=== PATIENT | female | born 1980 | race African-American/Black ===

== ENCOUNTER 2017-03-17 23:42 | Emergency (ER) | payer OTHER ==
[~2017-03-17] VITALS: Ht 167.6 cm; Wt 108.6 kg
[2017-03-17 23:49] VITALS: BP 149/89; PULSE 88; RESP 18; TEMP 97.5; O2SAT 100
[2017-03-18 00:10] VITALS: BP 136/72; PULSE 89; RESP 18; O2SAT 100
[2017-03-18] MEDS ORDERED: ONDANSETRON HCL 4 MG/2 ML VIAL IVP ONE (00:30)
[2017-03-18] MEDS ORDERED: SODIUM CHLORIDE 0.9% FLUSH 10 ML FLUSH IVF PRN (00:30)
[2017-03-18 00:40] VITALS: BP 136/72; PULSE 89; RESP 18; O2SAT 100
[2017-03-18] MEDS: SODIUM CHLOR 0.9% 1000 ML INJ 1,000 ML IV SCH ×2 (00:48→01:40)
--- NOTE | 2017-03-18 00:58 | PD ---
HPI Chief Complaint: PILAR Related Problem Time Seen by Provider: 00:22 Travel History International Travel<30 days: No Contact w/Intl Traveler<30days: No Traveled to known affect area: No History of Present Illness HPI The patient is a 36-year-old female, G4, P2, A1 who states she is 11 weeks who complains of bilateral lower abdominal cramping, nausea, vomiting and fatigue for 5 days. She had spotting during the first 3 weeks of but no spotting now. She denies any fever. She comes in primarily because of the nausea/vomiting and does not want to get more dehydrated. She has not had any diarrhea. She has not had an ultrasound yet. She is followed by Dr. Aviles. Her next appointment is next . She had preeclampsia in her first but has not had a problem since. PFSH Past Medical History AAA: No ADD: No ADHD: No Alzheimer's Disease: No Anemia: No Arthritis: No Asthma: No Atrial Fibrillation: No Autoimmune Disease: No Blood Disorders: No Bipolar Disorder: No Anxiety: No Depression: No Heart Rhythm Problems: No Cancer: No Cardiomyopathy: No Cardiovascular Problems: No Cerebral Palsy: No High Cholesterol: No Chemotherapy: No Chest Pain: No Congestive Heart Failure: No Cirrhosis: No COPD: No Cerebrovascular Accident: No Coronary Artery Disease: No Cystic Fibrosis: No Dementia: No Developmental Delay: No Diabetes: No Dialysis: No Diminished Hearing: No Diverticulitis: No Endocrine: No Gastrointestinal Disorders: No Genetic Disorder: No GERD: No Genitourinary: No Headaches: No Hepatitis: No Hypertension: No Immune Disorder: No Kidney Stones: No Musculoskeletal: No Neurologic: No Psychiatric: No Reproductive: Yes (PRE-ECLAMPSIA) Respiratory: No Integumentary: No Migraines: No Myocardial Infarction: No Pancreatitis: No Radiation Therapy: No Renal Failure: No Schizophrenia: No Seizures: No Sickle Cell Disease: No Thyroid Disease: No Ulcer: No ?: : 3 Para: 2 Miscarriage: 1 Past Surgical History Abdominal Surgery: Yes (1996) AICD: No Arteriovenous Shunt: No Cardiac Surgery: No Section: Yes (2002, 2006) Ear Surgery: No Endocrine Surgery: No Eye Surgery: No Genitourinary Surgery: No Gynecologic Surgery: No Insulin Pump: No Neurologic Surgery: No Oral Surgery: No Pacemaker: No Thoracic Surgery: No Other Surgery: Yes (UMBILICAL HERNIA REPAIR 1993) Family History Family Hypercholesterolemia: No Social History Alcohol Use: Yes ([facility]) Tobacco Use: No Substance Use: No Allergies-Medications (Allergen,Severity, Reaction): Coded Allergies: No Known Allergies (Verified , 03/18/17) Reported Meds & Prescriptions Reported Meds & Active Scripts Active No Active Prescriptions or Reported Medications Review of Systems Except as stated in HPI: all other systems reviewed are Neg Physical Exam Narrative GENERAL: The patient is alert, oriented 3 and moderate distress with her abdominal cramping and nausea. Her vital signs show blood pressure 149/89 initially but repeat blood pressure is 136/72. The rest the vital signs are normal. SKIN: Focused skin assessment warm/dry. HEAD: Atraumatic. Normocephalic. EYES: Pupils equal and round. No scleral icterus. No injection or drainage. ENT: No nasal bleeding or discharge. Mucous membranes pink and moist. NECK: Trachea midline. No JVD. CARDIOVASCULAR: Regular rate and rhythm. No murmur appreciated. RESPIRATORY: No accessory muscle use. Clear to auscultation. Breath sounds equal bilaterally. GASTROINTESTINAL: Abdomen soft, with minimal tenderness in the bilateral lower quadrants, nondistended. Hepatic and splenic margins not palpable. No guarding or rebound is present. MUSCULOSKELETAL: No obvious deformities. No clubbing. No cyanosis. There is 1 + bilateral lower extremity edema. NEUROLOGICAL: Awake and alert. No obvious cranial nerve deficits. Motor grossly within normal limits. Normal speech. PSYCHIATRIC: Appropriate mood and affect; insight and judgment normal. Data Data Last Documented VS Vital Signs Date Time Temp Pulse Resp B/P Pulse Ox O2 Delivery O2 Flow Rate FiO2 03/18/17 02:18 102 18 141/78 100 Room Air 03/17/17 23:49 97.5 Orders Beta Hcg (Quant/Titer) (03/18/17 00:22) Complete Blood Count With Diff (03/18/17 00:22) Basic Metabolic Panel (Bmp) (03/18/17 00:22) Us Pelvis (Ques Preg/Ectopic) (03/18/17 ) Urinalysis - C+S If Indicated (03/18/17 00:22) Sodium Chloride 0.9% Flush (Ns Flush) (03/18/17 00:30) Ondansetron Inj (Zofran Inj) (03/18/17 00:30) Sodium Chlor 0.9% 1000 Ml Inj (Ns 1000 M (03/18/17 00:30) Ondansetron Inj (Zofran Inj) (03/18/17 03:00) Labs Laboratory Tests Test 03/18/17 03/18/17 00:56 01:02 White Blood Count 8.2 TH/MM3 Red Blood Count 4.80 MIL/MM3 Hemoglobin 11.4 GM/DL Hematocrit 35.2 % Mean Corpuscular Volume 73.3 FL Mean Corpuscular Hemoglobin 23.8 PG Mean Corpuscular Hemoglobin 32.5 % Concent Red Cell Distribution Width 16.0 % Platelet Count 294 TH/MM3 Mean Platelet Volume 7.8 FL Neutrophils (%) (Auto) 65.1 % Lymphocytes (%) (Auto) 28.4 % Monocytes (%) (Auto) 4.6 % Eosinophils (%) (Auto) 1.5 % Basophils (%) (Auto) 0.4 % Neutrophils # (Auto) 5.4 TH/MM3 Lymphocytes # (Auto) 2.3 TH/MM3 Monocytes # (Auto) 0.4 TH/MM3 Eosinophils # (Auto) 0.1 TH/MM3 Basophils # (Auto) 0.0 TH/MM3 CBC Comment DIFF FINAL Differential Comment Sodium Level 138 MEQ/L Potassium Level 3.6 MEQ/L Chloride Level 104 MEQ/L Carbon Dioxide Level 23.2 MEQ/L Anion Gap 11 MEQ/L Blood Urea Nitrogen 6 MG/DL Creatinine 0.57 MG/DL Estimat Glomerular Filtration 146 ML/MIN Rate Random Glucose 133 MG/DL Calcium Level 8.7 MG/DL Human Chorionic Gonadotropin, [address] MIU/ML Quant Urine Color YELLOW Urine Turbidity CLEAR Urine pH 6.0 Urine Specific [place] 1.020 Urine Protein NEG mg/dL Urine Glucose (UA) NEG mg/dL Urine Ketones NEG mg/dL Urine Occult Blood NEG Urine Nitrite NEG Urine Bilirubin NEG Urine Leukocyte Esterase NEG Urine RBC 0-3 /hpf Urine WBC 3-5 /hpf Urine Squamous Epithelial 0-5 /hpf Cells Urine Bacteria OCC /hpf Microscopic Urinalysis Comment CULT NOT INDICATED MDM Medical Decision Making Medical Screen Exam Complete: Yes Emergency Medical Condition: Yes Medical Record Reviewed: Yes Interpretation(s) The ultrasound could not be done because the uterus was over 12.6 weeks. The beta-hCG is 98,883. The CBC is normal except for hemoglobin of 11.4. The urinalysis shows 3-5 white cells but is otherwise unremarkable and culture is not indicated. Differential Diagnosis Gastroenteritis, hyperemesis gravidarum, ligament pain, abruptio placenta, threatened AB Narrative Course The patient appears to have hyperemesis gravidarum with ligament pain. Plan: The patient be given Zofran and told to increase clear liquids to avoid dehydration. She will follow up with Dr. Galindo. Physician Communication Physician Communication The patient was actually discharged at 022 but because of computer delay with computers going down this appears later on the computer. Diagnosis Primary Impression: Hyperemesis gravidarum Additional Impression: Pain of round ligament Additional Instructions: As we discussed, follow-up with Dr. Galindo. Avoid dehydration, drink as much clear liquids as possible and take the Zofran regularly, every 4-6 hours to prevent nausea/vomiting. Scripts Ondansetron Odt (Zofran Odt)4 Mg Tab4 Mg SL Q6HR PRN (Nausea/Vomiting) #30 TAB Ref 0 Prov:Fahad Fraire MD 03/18/17 Disposition: DISCHARGE HOME Condition: Stable Fahad Fraire MD March 18, 2017 00:58
[2017-03-18 01:05] LABS: BLOOD, URINE NEG (NEG); GLUCOSE,URINE NEG (NEG); KETONE, URINE NEG (NEG); NITRITE,URINE NEG (NEG)
[2017-03-18 01:06] LABS: AUTOMATED NEUTROPHIL # 5.4 TH/MM3 (1.8-7.7); BASOPHIL % 0.4 % (0.0-2.0); EOSINOPHIL # 0.1 TH/MM3 (0-0.4); EOSINOPHIL % 1.5 % (0.0-4.0); HEMATOCRIT 35.2 % (35.0-46.0); LYMPH % 28.4 % (9.0-44.0); LYMPHOCYTE # 2.3 TH/MM3 (1.0-4.8); MEAN CELL VOLUME 73.3 FL (80.0-100.0); MEAN CORPUSCULAR HEMOGLOBIN 23.8 PG (27.0-34.0); MEAN CORPUSCULAR HGB CONC 32.5 % (32.0-36.0); MONO % 4.6 % (0.0-8.0); NEUT % 65.1 % (16.0-70.0); PLATELET COUNT 294 TH/MM3 (150-450); WHITE BLOOD COUNT 8.2 TH/MM3 (4.0-11.0)
[2017-03-18 01:09] VITALS: BP 135/66; PULSE 98; RESP 18; O2SAT 100
[2017-03-18] MEDS ORDERED: ONDANSETRON HCL 4 MG/2 ML VIAL IV PUSH ONE ×2 (02:00→03:00)
[2017-03-18 02:18] VITALS: BP 141/78; PULSE 102; RESP 18; O2SAT 100
[2017-03-18 02:31] LABS: BICARBONATE 23.2 MEQ/L (21.0-32.0); HEMO FLAGS DIFF FINAL; POTASSIUM 3.6 MEQ/L (3.5-5.1)
[2017-03-18 02:32] LABS: BACTERIA, URINE OCC /hpf; COMMENT (UR) CULT NOT INDICATED; CULTURE IF INDICATED CULT NOT INDICATED; RBC, URINE 0-3 /hpf (0-3); SQUAMOUS EPITHELIAL CELL URINE 0-5 /hpf (0-5); URINE COLOR YELLOW (YELLW/STRAW)
[2017-03-18] MEDS ORDERED: ZOFR4TAB3 SL (02:46)
== END 2017-03-18 03:08 | disposition home or self-care (01) ==
LOC: PHED 23:42
DX: O21.0 Mild hyperemesis gravidarum (principal); R10.2 Pelvic and perineal pain; Z3A.11 11 weeks gestation of pregnancy
CPT/HCPCS: 80048; 81001; 84702; 85025; 96361; 96374; 96376; 99284; J2405; J7030

== ENCOUNTER 2017-08-09 23:34 | Emergency (ER) | payer OTHER ==
[~2017-08-09 23:34] MED LIST: ZOFR4TAB3 SL
--- NOTE | 2017-08-10 00:52 | PD ---
HPI Chief Complaint ctx Travel History International Travel<30 Days: No Contact w/Intl Traveler<30Days: No Known Affected Area: No History of Present Illness HPI 36-year-old 002, IUP at 33.0 care complicated by mild preeclampsia, prior delivery x2, contractions/abdominal pain, obesity Patient presents complaining of abdominal pain. She reports she has been having [place] contractions for 2 weeks however they became "unbearable "today. She reports that she was experiencing them every 30 minutes during the evening with associated abdominal pressure when she was sitting and standing. She works as a chiropractor. She reports some swelling in her lower feet and extremities. She reports a 10 minute episode of upper abdominal pain that was "very painful" and occurred while she was driving home but resolved spontaneously. She denies any aggravating or alleviating factors to the contractions, and denies any attempted treatments. She does not drink much water during the day. She reports good movement. She denies any leaking of fluid or vaginal bleeding. She denies any painful contractions. She denies any headache, visual changes, right upper quadrant or epigastric pain at this time. Weeks Gestation: 33 Para: 2 History Past Medical History Narrative Medical obesity Obstetric History Obstetric History 002 Full-term delivery 2 Past Surgical History Narrative Surgical delivery 2 Family History Narrative Family History DM, HTN, CAD, [place] Social History Alcohol Use: No Tobacco Use: No Substance Abuse: No Allergies-Medications (Allergen,Severity, Reaction): Coded Allergies: No Known Allergies (Verified , 03/18/17) Home Meds Active Scripts Ondansetron Odt (Zofran Odt) 4 Mg Tab, 4 MG SL Q6HR Y for Nausea/Vomiting, #30 TAB 0 Refills Prov:Fahad Fraire MD 03/18/17 Review of Systems Except as stated in HPI: all other systems reviewed are Neg Physical Exam Narrative GENERAL: Well-nourished, well-developed patient. SKIN: Warm and dry. HEAD: Normocephalic and atraumatic. EYES: No scleral icterus. No injection or drainage. ENT: No nasal drainage noted. Mucous membranes pink. Airway patent. NECK: Supple, trachea midline. No JVD. CARDIOVASCULAR: Regular rate and rhythm without murmurs, gallops, or rubs. RESPIRATORY: Breath sounds equal bilaterally. No accessory muscle use. BREASTS: Deferred ABDOMEN/GI: Abdomen soft, non-tender, bowel sounds present, no rebound, no guarding Gravid GENITOURINARY: External Genitalia: intact and normal in appearance. Normal BUS. No cervical or vaginal masses noted. Physiologic discharge. Grossly normal rugae. FF then obtained and negative. SVE closed/thick/high/posterior, uterine contractions irregular FHT's: See separate NST/BPP report. heart rate baseline in the 120s with good good accelerations, no repetitive decelerations and moderate long-term variability with reactive NST EXTREMITIES: No cyanosis or edema. BACK: Nontender without obvious deformity. No CVA tenderness. NEUROLOGICAL: Awake and alert. Motor and sensory grossly within normal limits. Five out of 5 muscle strength in all muscle groups. Normal speech. Psychiatric: Grossly normal memory and affect Musculoskeletal: Grossly normal range of motion, gait, muscle strength Data Data Orders Orders Fibronectin (08/10/17 00:47) MDM Plan Assessment/plan: 1. IUP at 33.0 2. contractions: No evidence of labor with negative fibronectin and SVE that is closed and thick. Contractions resolved with by mouth hydration and patient was sleeping and resting comfortably. Strict labor precautions. 3. Mild preeclampsia: Patient asymptomatic with normal blood pressure upon evaluation, strict preeclampsia precautions 4. Prior delivery 2 5. well-being: Reassuring testing with NST/BPP that is reactive and 10/10. FHR reassuring and appropriate for gestational age. kick counts daily. 6. Obesity 7. UA: Negative 8. Follow up with primary OB in 2-3 days or sooner if needed Diagnosis Diagnosis: Primary Impression: 33 weeks gestation of Additional Impression: False labor Disposition: DISCHARGE HOME Condition: Good Patient Instructions: Labor (ED), Early Labor Signs (ED), Preeclampsia (ED), Movement (ED) Sahnnen Xiao MD Aug 10, 2017 00:52
--- NOTE | 2017-08-10 01:57 | PD ---
History of Present Illness History of Present Illness NST/BPP report Indications: IUP at 33 weeks, mild preeclampsia, prior delivery, contractions/abdominal pain, obesity NST: FHR baseline in the 120s with good accelerations and no decelerations, moderate long-term variability, reactive BPP: Bedside BPP was performed with DEXTER 18.02, greater than 30 seconds continuous breathing, numerous gross movements, and active flexion/ extension noted for a total BPP score of 8/8 Follow-up as clinically indicated Final diagnosis: IUP at 33 weeks, mild preeclampsia, prior delivery, contractions/abdominal pain, obesity, reassuring testing, false labor Shannen Xiao MD Aug 10, 2017 01:57
[2017-08-10 02:08] LABS: BLOOD, URINE TRACE (NEG); COMMENT (UR) CULT NOT INDICATED; CULTURE IF INDICATED CULT NOT INDICATED; GLUCOSE,URINE NEG (NEG); KETONE, URINE NEG (NEG); NITRITE,URINE NEG (NEG); SQUAMOUS EPITHELIAL CELL URINE 2 /hpf (0-5); URINE COLOR YELLOW (YELLW/STRAW)
== END 2017-08-10 02:30 | disposition home or self-care (01) ==
LOC: HOBED 23:34
DX: O47.03 False labor before 37 completed weeks of gestation, third trimester (principal); Z3A.33 33 weeks gestation of pregnancy
CPT/HCPCS: 59025; 81001; 82731

== ENCOUNTER 2017-08-29 18:36 | Inpatient (IN) | payer OTHER ==
[~2017-08-29] VITALS: Ht 165.1 cm; Wt 120.2 kg
[2017-08-29 20:00] VITALS: BP 135/84; PULSE 103
[2017-08-29 20:15] VITALS: BP 142/76; PULSE 103
[2017-08-29] MEDS ORDERED: LACTATED RINGER'S 1000 ML INJ 1,000 ML IV SCH (20:22)
--- NOTE | 2017-08-29 20:22 | HHI.HP ---
HPI Chief Complaint High blood pressure noted in her doctor's office Date Seen: Aug 29, 2017 Time Seen: 20:00 Travel History International Travel<30 Days: No Contact w/Intl Traveler<30Days: No Known Affected Area: No History of Present Illness HPI Patient is 36-year-old black female previous 2 at 35 -- [address] Panchal for care and was sent here by Dr. Panchal for evaluation of -induced hypertension. Her blood pressure in the office 150/100 and her blood pressures been good roll until just this within the last month she's had a several 140/80 numbers week ago she had 2+ protein done here on OB ED her blood pressures are 140/80 ,130/80 however she has 4+ protein on urine dipstick, 1-2+ edema versus scheduled for repeat with Dr. Panchal Weeks Gestation: 35 Para: 2 : 5 Miscarriage: 1 History Past Medical History Medical History: Denies Significant Hx Obstetric History Obstetric History Patient's had 2 C-sections 1st section at 34 weeks for for severe preeclampsia and second section a repeat at 38 weeks and she did not have preeclampsia with that according the patient Past Surgical History Narrative Surgical 2 C-sections Social History Alcohol Use: No Tobacco Use: No Substance Abuse: No Allergies-Medications (Allergen,Severity, Reaction): Coded Allergies: No Known Allergies (Verified , 03/18/17) Home Meds Active Scripts Ondansetron Odt (Zofran Odt) 4 Mg Tab, 4 MG SL Q6HR Y for Nausea/Vomiting, #30 TAB 0 Refills Prov:Fahad Fraire MD 03/18/17 Review of Systems General / Constitutional: No: Fever, Weight Gain, Chills, Other Eyes: No: Diploplia, Blurred Vision, Visual changes, Pain, Photophobia HENT: No: Headaches, Vertigo, Lightheadedness Cardiovascular: No: Irregular Rhythm, Chest Pain or Discomfort, Palpitations, Tachycardia, Syncope, Varicosities, Edema, Cyanosis Respiratory: No: Cough, Short of Breath, Other Gastrointestinal: No: Nausea, Vomiting, Diarrhea Genitourinary: No: Decreased Urinary Output, Oliguria Musculoskeletal: No: Limited ROM, Weakness, Cramping, Edema, Pain Skin: No Rash, No Itching, No Dryness, No Lumps, No Change in Pigmentation, No Change in Nails, No Alopecia, No Lesions Neurologic: No: Weakness, Dizziness, Syncope, Focal Abnormalities, Coordination Problem, Headache, Slurred Speech, Seizures Psychiatric: No: Depression, Suicidal Ideations, Homicidal Ideation Endocrine: No: Heat Intolerance, Cold Intolerance, Polydipsia, Polyuria, Other Physical Exam Narrative GENERAL: Well-nourished, well-developed patient.obese SKIN: Warm and dry. HEAD: Normocephalic and atraumatic. EYES: No scleral icterus. No injection or drainage. ENT: No nasal drainage noted. Mucous membranes pink. Airway patent. NECK: Supple, trachea midline. No JVD. CARDIOVASCULAR: Regular rate and rhythm without murmurs, gallops, or rubs. RESPIRATORY: Breath sounds equal bilaterally. No accessory muscle use. BREASTS: Bilateral exam showed no masses , no retractions, no nipple discharge. ABDOMEN/GI: Abdomen soft, non-tender, bowel sounds present, no rebound, no guarding Gravid to [35-] weeks size Fundal Height: [40-] Membranes: [intact ] Uterine Contractions: [none-] FHT's: Category: [1-] Baseline: [133-] Reactive: [yes-] Variability: [-mod] Decels: [-0] EXTREMITIES: No cyanosis, 2+ edema. BACK: Nontender without obvious deformity. No CVA tenderness. NEUROLOGICAL: Awake and alert. Motor and sensory grossly within normal limits. Five out of 5 muscle strength in all muscle groups. Normal speech. Caprini VTE Risk Assessment Caprini VTE Risk Assessment: No/Low Risk (score <= 1) Caprini Risk Assessment Model Point Value = 1 Point Value = 2 Point Value = 3 Point Value = 5 Age 41-60 Minor surgery BMI > 25 kg/m2 Swollen legs Varicose veins or History of unexplained or recurrent spontaneous Oral contraceptives or hormone replacement Sepsis (< 1 month) Serious lung disease, including pneumonia (< 1 month) Abnormal pulmonary function Acute myocardial infarction Congestive heart failure (< 1 month) History of inflammatory bowel disease Medical patient at bed rest Age 61-74 Arthroscopic surgery Major open surgery (> 45 min) Laparoscopic surgery (> 45 min) Malignancy Confined to bed (> 72 hours) Immobilizing plaster cast Central venous access Age >= 75 History of VTE Family history of VTE Factor V Leiden Prothrombin [id number] Lupus anticoagulant Anticardiolipin antibodies Elevated serum homocysteine Heparin-induced thrombocytopenia Other congenital or acquired thrombophilia Stroke (< 1 month) Elective arthroplasty Hip, pelvis, or leg fracture Acute spinal cord injury (< 1 month) Prophylaxis Regimen Total Risk Factor Score Risk Level Prophylaxis Regimen 0-1 Low Early ambulation 2 Moderate Order ONE of the following: *Sequential Compression Device (SCD) *Heparin 5000 units SQ BID 3-4 Higher Order ONE of the following medications: *Heparin 5000 units SQ TID *Enoxaparin/Lovenox 40 mg SQ daily (WT < 150 kg, CrCl > 30 mL/min) *Enoxaparin/Lovenox 30 mg SQ daily (WT < 150 kg, CrCl > 10-29 mL/min) *Enoxaparin/Lovenox 30 mg SQ BID (WT < 150 kg, CrCl > 30 mL/min) AND/OR *Sequential Compression Device (SCD) 5 or more Highest Order ONE of the following medications: *Heparin 5000 units SQ TID (Preferred with Epidurals) *Enoxaparin/Lovenox 40 mg SQ daily (WT < 150 kg, CrCl > 30 mL/min) *Enoxaparin/Lovenox 30 mg SQ daily (WT < 150 kg, CrCl > 10-29 mL/min) *Enoxaparin/Lovenox 30 mg SQ BID (WT < 150 kg, CrCl > 30 mL/min) AND *Sequential Compression Device (SCD) Data Data Orders Orders Cbc No Diff, Includes Plts (08/29/17 19:29) Comprehensive Metabolic Panel (08/29/17 19:29) Uric Acid (08/29/17 19:29) Labs Urine dipstick showing 4+ proteinuria [> 300} Assessment/Plan Assessment and Plan 36-year-old black female A1 at 35-36 weeks gestation PCS [2] patient of Dr. Panchal sent over for evaluation for -induced hypertension. Her blood pressures in the office 150/100 and here on OB ED is 140/80 however she also has urine dipstick showed 4+ proteinuria patient states it was 2+ proteinuria week ago, and she has 2+ edema. heart rate tracing is reactive and she is not roney. Patient states she's had some headache recently but not now and no visual changes right upper quadrant pain or other sequelae Impression pre-eclampsia 35-36 weeks- PCS times 2 for RCS Plan --admission check lab, consider betamethasone IM and delivery by C/S , will discuss with Roberto Louis II, MD Aug 29, 2017 20:22
[2017-08-29] MEDS ORDERED: SODIUM CHLORIDE 0.9% FLUSH 5 ML FLUSH IV FLUSH PRN ×2 (20:30→22:30)
[2017-08-29] MEDS ORDERED: ONDANSETRON HCL 4 MG/2 ML VIAL IV PUSH PRN (20:30)
[2017-08-29] MEDS ORDERED: NIFEdipine 10 MG CAP PO PRN ×3 (20:30→21:15)
[2017-08-29] MEDS ORDERED: CALCIUM GLUCONATE 10% 1 GM/10 ML VIAL IV PUSH PRN ×2 (20:30→22:30)
[2017-08-29] MEDS ORDERED: SODIUM CHLORIDE 0.9% FLUSH 5 ML FLUSH IV FLUSH SCH (21:00)
[2017-08-29 21:12] LABS: BACTERIA, URINE RARE /hpf; BLOOD, URINE SMALL (NEG); COMMENT (UR) CULT NOT INDICATED; CULTURE IF INDICATED CULT NOT INDICATED; GLUCOSE,URINE NEG (NEG); KETONE, URINE NEG (NEG); MUCUS URINE FEW /lpf (OCC); NITRITE,URINE NEG (NEG); PH, URINE 6.5 (5.0-8.5); SQUAMOUS EPITHELIAL CELL URINE 7 /hpf (0-5); URINE COLOR YELLOW (YELLW/STRAW)
[2017-08-29 21:20] LABS: HEMATOCRIT 30.5 % (35.0-46.0); MEAN CELL VOLUME 71.1 FL (80.0-100.0); MEAN CORPUSCULAR HEMOGLOBIN 22.8 PG (27.0-34.0); MEAN CORPUSCULAR HGB CONC 32.1 % (32.0-36.0); PLATELET COUNT 293 TH/MM3 (150-450); RED BLOOD COUNT 4.29 MIL/MM3 (4.00-5.30); RED CELL DISTRIBUTION WIDTH 18.2 % (11.6-17.2); REVIEW FLAG FINAL; WHITE BLOOD COUNT 7.3 TH/MM3 (4.0-11.0)
[2017-08-29 21:44] VITALS: BP 151/89; PULSE 108
[2017-08-29 21:45] VITALS: RESP 17
[2017-08-29 21:53] LABS: ANION GAP 9 MEQ/L (5-15); AST (GOT) 23 U/L (15-37); BLOOD UREA NITROGEN 7 MG/DL (7-18); CHLORIDE 105 MEQ/L (98-107); GLOMERULAR FILTRATION RATE 149 ML/MIN (>89); POTASSIUM 3.6 MEQ/L (3.5-5.1); SODIUM (NA) 136 MEQ/L (136-145)
[2017-08-29 21:54] LABS: URIC ACID 5.1 MG/DL (2.6-6.0)
[2017-08-29 21:57] LABS: ALKALINE PHOSPHATASE 157 U/L (45-117); ALT (GPT) 22 U/L (10-53); TOTAL BILIRUBIN ADULT 0.2 MG/DL (0.2-1.0)
[2017-08-29] MEDS ORDERED: Prenatal Vitamin PO (22:04)
[2017-08-29] MEDS ORDERED: Iron PO (22:05)
[2017-08-29] MEDS ORDERED: B12 PO (22:05)
[2017-08-29] MEDS: LACTATED RINGER'S 1000 ML INJ 1,000 ML IV SCH (22:30)
[2017-08-29 22:45] VITALS: BP 147/80; PULSE 101
[2017-08-29] MEDS: BETAMETHASONE SOD PHOS/ACETATE SUSP 30 MG/5 ML VIAL IM SCH (22:49)
[2017-08-29 23:00] VITALS: BP 138/82; PULSE 98; RESP 16
[2017-08-30] VITALS (39 sets, daily range): BP systolic 123–158; BP diastolic 54–86; PULSE 94–127; RESP 0–28; TEMP 97.5–98.4; O2SAT 96–100
--- NOTE | 2017-08-30 08:07 | PD.OB.ANTE ---
Subjective Diagnosis: (1) Hypertension complicating Diagnosis: Principal (2) 35 weeks gestation of Diagnosis: Secondary Antepartum ROS: Denies: New complaints, Loss of fluid, Vaginal bleeding, movement normal, Contractions, Other Objective Vital Signs Vital Signs Date Time Temp Pulse Resp B/P (MAP) Pulse Ox O2 Delivery O2 Flow Rate FiO2 08/30/17 07:45 94 18 137/77 (97) 08/30/17 07:42 98.2 08/30/17 06:30 98.4 14 08/30/17 06:00 101 123/65 (84) 08/30/17 05:00 104 139/71 (93) 08/30/17 04:09 101 133/66 (88) 08/30/17 04:00 12 08/30/17 04:00 0 08/30/17 03:00 111 135/54 (81) 08/30/17 02:30 14 08/30/17 01:00 107 150/77 (101) 08/30/17 00:26 111 152/86 (108) 08/30/17 00:00 98.4 17 08/29/17 23:00 16 08/29/17 23:00 98 138/82 (100) 08/29/17 22:45 101 147/80 (102) 08/29/17 21:45 17 08/29/17 21:44 108 151/89 (109) 08/29/17 20:15 103 142/76 (98) 08/29/17 20:00 103 135/84 (101) Lab & Micro Results Test 08/29/17 19:15 08/29/17 20:30 Urine Color YELLOW Urine Turbidity HAZY Urine pH 6.5 Urine Specific [place] 1.020 Urine Protein 100 mg/dL Urine Glucose (UA) NEG mg/dL Urine Ketones NEG mg/dL Urine Occult Blood SMALL Urine Nitrite NEG Urine Bilirubin NEG Urine Urobilinogen 2.0 MG/DL Urine Leukocyte Esterase SMALL Urine RBC 1 /hpf Urine WBC 3 /hpf Urine Squamous Epithelial Cells 7 /hpf Urine Bacteria RARE /hpf Urine Mucus FEW /lpf Microscopic Urinalysis Comment CULT NOT INDICATED White Blood Count 7.3 TH/MM3 Red Blood Count 4.29 MIL/MM3 Hemoglobin 9.8 GM/DL Hematocrit 30.5 % Mean Corpuscular Volume 71.1 FL Mean Corpuscular Hemoglobin 22.8 PG Mean Corpuscular Hemoglobin Concent 32.1 % Red Cell Distribution Width 18.2 % Platelet Count 293 TH/MM3 Mean Platelet Volume 8.1 FL Blood Urea Nitrogen 7 MG/DL Creatinine 0.56 MG/DL Random Glucose 118 MG/DL Total Protein 6.8 GM/DL Albumin 2.4 GM/DL Calcium Level 8.7 MG/DL Uric Acid 5.1 MG/DL Alkaline Phosphatase 157 U/L Aspartate Amino Transf (AST/SGOT) 23 U/L Alanine Aminotransferase (ALT/SGPT) 22 U/L Total Bilirubin 0.2 MG/DL Sodium Level 136 MEQ/L Potassium Level 3.6 MEQ/L Chloride Level 105 MEQ/L Carbon Dioxide Level 22.0 MEQ/L Anion Gap 9 MEQ/L Estimat Glomerular Filtration Rate 149 ML/MIN Physical Exam GENERAL: Well-nourished, well-developed patient. CARDIOVASCULAR: Regular rate and rhythm without murmurs, gallops, or rubs. RESPIRATORY: Breath sounds equal bilaterally. No accessory muscle use. ABDOMEN/GI: Abdomen soft, non-tender. Fundus: 35 GENITOURINARY: External Genitalia: intact and normal in appearance Cervix: [-] Dilatation: [-] Effacement: [-] Station: [-] Presentation: [-] Membranes: [-] Uterine Contractions: [-] FHT's: Category: [-] Baseline: [-] Reactive: [-] Variability: [-] Decels: [-] EXTREMITIES: No cyanosis or edema, non-tender, without signs of DVT, normal reflexes. Assessment and Plan Assessment and Plan 36-year-old black female A1 at 35-36 weeks gestation PCS [2] patient of Dr. Panchal sent over for evaluation for -induced hypertension. Her blood pressures in the office 150/100 and here on OB ED is 140/80 however she also has urine dipstick showed 4+ proteinuria patient states it was 2+ proteinuria week ago, and she has 2+ edema. heart rate tracing is reactive and she is not roney. Patient states she's had some headache recently but not now and no visual changes right upper quadrant pain or other sequelae Impression 35 6/7 weeks and hypertension ok to eat will complete 24 hour urine and give 2nd dose of steroids- Plan --admission check lab, normal Sulaiman Aviles MD Aug 30, 2017 08:07
[2017-08-30] MEDS: SODIUM CHLORIDE 0.9% FLUSH 5 ML FLUSH IV FLUSH SCH ×2 (08:12→21:00)
[2017-08-30] MEDS: LACTATED RINGER'S 1000 ML INJ 1,000 ML IV SCH ×3 (11:17→22:34)
[2017-08-30] MEDS ORDERED: MAGNESIUM SULFATE 40 GM PREMIX 1,000 ML IV SCH (12:59)
[2017-08-30] MEDS ORDERED: BETAMETHASONE SOD PHOS/ACETATE SUSP 30 MG/5 ML VIAL IM ONE (13:00)
[2017-08-30] MEDS ORDERED: SODIUM CHLORIDE 0.9% FLUSH 5 ML FLUSH IV FLUSH PRN (13:00)
[2017-08-30] MEDS ORDERED: CALCIUM GLUCONATE 10% 1 GM/10 ML VIAL IV PUSH PRN (13:00)
--- NOTE | 2017-08-30 13:05 | PD.OB.ANTE ---
Subjective Diagnosis: (1) Hypertension complicating Diagnosis: Principal (2) 35 weeks gestation of Diagnosis: Secondary Antepartum ROS: Reports: Other (Now has mid epigastric pain and headache worsening symptoms of preeclampsia) Objective Vital Signs Vital Signs Date Time Temp Pulse Resp B/P (MAP) Pulse Ox O2 Delivery O2 Flow Rate FiO2 08/30/17 11:20 116 97 08/30/17 11:15 119 98 08/30/17 11:10 115 98 08/30/17 11:05 125 98 08/30/17 11:00 28 08/30/17 11:00 119 97 08/30/17 10:55 117 97 08/30/17 10:50 122 97 08/30/17 10:45 118 96 08/30/17 10:40 117 98 08/30/17 10:35 118 97 08/30/17 10:00 116 145/74 (97) 08/30/17 07:45 94 18 137/77 (97) 08/30/17 07:42 98.2 08/30/17 06:30 98.4 14 08/30/17 06:00 101 123/65 (84) 08/30/17 05:00 104 139/71 (93) 08/30/17 04:09 101 133/66 (88) 08/30/17 04:00 12 08/30/17 04:00 0 08/30/17 03:00 111 135/54 (81) 08/30/17 02:30 14 08/30/17 01:00 107 150/77 (101) 08/30/17 00:26 111 152/86 (108) 08/30/17 00:00 98.4 17 08/29/17 23:00 16 08/29/17 23:00 98 138/82 (100) 08/29/17 22:45 101 147/80 (102) 08/29/17 21:45 17 08/29/17 21:44 108 151/89 (109) 08/29/17 20:15 103 142/76 (98) 08/29/17 20:00 103 135/84 (101) Lab & Micro Results Test 08/29/17 19:15 08/29/17 20:30 Urine Color YELLOW Urine Turbidity HAZY Urine pH 6.5 Urine Specific [place] 1.020 Urine Protein 100 mg/dL Urine Glucose (UA) NEG mg/dL Urine Ketones NEG mg/dL Urine Occult Blood SMALL Urine Nitrite NEG Urine Bilirubin NEG Urine Urobilinogen 2.0 MG/DL Urine Leukocyte Esterase SMALL Urine RBC 1 /hpf Urine WBC 3 /hpf Urine Squamous Epithelial Cells 7 /hpf Urine Bacteria RARE /hpf Urine Mucus FEW /lpf Microscopic Urinalysis Comment CULT NOT INDICATED White Blood Count 7.3 TH/MM3 Red Blood Count 4.29 MIL/MM3 Hemoglobin 9.8 GM/DL Hematocrit 30.5 % Mean Corpuscular Volume 71.1 FL Mean Corpuscular Hemoglobin 22.8 PG Mean Corpuscular Hemoglobin Concent 32.1 % Red Cell Distribution Width 18.2 % Platelet Count 293 TH/MM3 Mean Platelet Volume 8.1 FL Blood Urea Nitrogen 7 MG/DL Creatinine 0.56 MG/DL Random Glucose 118 MG/DL Total Protein 6.8 GM/DL Albumin 2.4 GM/DL Calcium Level 8.7 MG/DL Uric Acid 5.1 MG/DL Alkaline Phosphatase 157 U/L Aspartate Amino Transf (AST/SGOT) 23 U/L Alanine Aminotransferase (ALT/SGPT) 22 U/L Total Bilirubin 0.2 MG/DL Sodium Level 136 MEQ/L Potassium Level 3.6 MEQ/L Chloride Level 105 MEQ/L Carbon Dioxide Level 22.0 MEQ/L Anion Gap 9 MEQ/L Estimat Glomerular Filtration Rate 149 ML/MIN Physical Exam GENERAL: Well-nourished, well-developed patient. CARDIOVASCULAR: tachycardia and no murmurs, gallops, or rubs. RESPIRATORY: Breath sounds equal bilaterally. No accessory muscle use. ABDOMEN/GI: Abdomen soft, non-tender. Fundus: [-] GENITOURINARY: External Genitalia: intact and normal in appearance Cervix: [-] Dilatation: [-] Effacement: [-] Station: [-] Presentation: [-] Membranes: [-] Uterine Contractions: [-] FHT's: Category: 1 Baseline: [-] Reactive: [-] Variability: [-] Decels: [-] EXTREMITIES: No cyanosis or edema, non-tender, without signs of DVT. Assessment and Plan Problem List: (1) Hypertension complicating ICD Codes: O16.9 - Unspecified maternal hypertension, unspecified trimester (2) 35 weeks gestation of ICD Codes: Z3A.35 - 35 weeks gestation of Assessment and Plan 36-year-old black female A1 at 35-36 weeks gestation for CS now with worsening symptoms and start magnesium CS when NPO for 8 hours Impression 35 6/7 weeks preclampsia Plan --admission check lab, normal Sulaiman Aviles MD Aug 30, 2017 13:05
[2017-08-30 13:34] LABS: HEMATOCRIT 30.7 % (35.0-46.0); MEAN CELL VOLUME 71.3 FL (80.0-100.0); MEAN CORPUSCULAR HEMOGLOBIN 22.9 PG (27.0-34.0); MEAN CORPUSCULAR HGB CONC 32.2 % (32.0-36.0); PLATELET COUNT 293 TH/MM3 (150-450); RED CELL DISTRIBUTION WIDTH 18.7 % (11.6-17.2); REVIEW FLAG FINAL; WHITE BLOOD COUNT 8.8 TH/MM3 (4.0-11.0)
[2017-08-30] MEDS: BETAMETHASONE SOD PHOS/ACETATE SUSP 30 MG/5 ML VIAL IM SCH (13:34)
[2017-08-30 13:57] LABS: ANION GAP 9 MEQ/L (5-15); AST (GOT) 17 U/L (15-37); BICARBONATE 22.6 MEQ/L (21.0-32.0); BLOOD UREA NITROGEN 9 MG/DL (7-18); CHLORIDE 104 MEQ/L (98-107); GLOMERULAR FILTRATION RATE 174 ML/MIN (>89); POTASSIUM 3.9 MEQ/L (3.5-5.1); SODIUM (NA) 136 MEQ/L (136-145)
[2017-08-30 13:58] LABS: ALT (GPT) 20 U/L (10-53)
[2017-08-30 14:00] LABS: ALKALINE PHOSPHATASE 151 U/L (45-117); TOTAL BILIRUBIN ADULT 0.3 MG/DL (0.2-1.0)
[2017-08-30] MEDS ORDERED: LACTATED RINGER'S 1000 ML INJ 1,000 ML IV ONE ×2 (14:01→17:30)
[2017-08-30] MEDS ORDERED: ONDANSETRON HCL 4 MG/2 ML VIAL IV PUSH ONE (14:01)
[2017-08-30] MEDS ORDERED: MORPHINE SULFATE PF 5 MG/10 ML VIAL ONE (14:01)
[2017-08-30] MEDS ORDERED: OXYTOCIN 10 UNIT/ML AMP IV ONE (14:01)
[2017-08-30] MEDS ORDERED: SODIUM CHLORIDE 0.9% 20 ML VIAL IV ONE (14:01)
[2017-08-30] MEDS ORDERED: ceFAZolin INJ 1,000 MG VIAL IV ONE (14:01)
[2017-08-30] MEDS: ACETAMINOPHEN 325 MG TAB PO SCH ×2 (16:00→20:00)
[2017-08-30] MEDS ORDERED: ACETAMINOPHEN 1000 MG/100 ML 100 ML IV ONE (17:11)
[2017-08-30] MEDS ORDERED: ceFAZolin 2 GM PREMIX 50 ML IV SCH (18:00)
[2017-08-30] MEDS ORDERED: DEXAMETHASONE SOD PHOS PF 10 MG/ML VIAL ONE (18:14)
[2017-08-30] MEDS ORDERED: BUPIVACAINE HCL PF 0.5% 30 ML VIAL ONE (18:15)
[2017-08-30] MEDS ORDERED: EPINEPHrine HCL PF/SF (1:1000) 1 MG/ML AMP I-OCULAR ONE (18:15)
--- NOTE | 2017-08-30 18:23 | PD.OB.DELI ---
Procedure Note Section Procedure Pre Op Diagnosis: (1) 35 weeks gestation of (2) Pre-eclampsia added to pre-existing hypertension Post Op Diagnosis: (1) Pre-eclampsia added to pre-existing hypertension Performed by Sulaiman Aviles Procedure: Repeat Low Transverse Sec Indication for delivery: Other (preeclampsia nad previous CS) Previous condition: None Informed consent obtained: For anesthesia, For procedure Confirmed correct: Patient, Procedure, Time-out taken Anesthesia: Spinal Monitoring during procedure: Blood pressure monitoring Urinary catheter: Inserted using sterile technique, To dependent drainage Sterile preparation: Duraprep Position: Supine with wedge to left side Operative Features Skin Incision: Pfannenstiel Uterine Incision: Low transverse w/knife / blunt ext Membranes Ruptured: Artificially Presentation: Occiput anterior Delivery date: Aug 30, 2017 Delivery time: 17:42 Delivery of : Assisted (vacuum) : Male One Minute : 4 Five Minute : 7 Ten Minute : 8 Weight: 8# 2 oz Status of infant: Viable Placenta delivered: Intact Medications: Antibiotics Estimated blood loss: 500 Procedure tolerated: Well Maternal Condition: Stable Condition: Stable Sulaiman Aviles MD Aug 30, 2017 18:23
[2017-08-30] MEDS ORDERED: SODIUM CHLORIDE 0.9% FLUSH 10 ML FLUSH IV FLUSH PRN (18:30)
[2017-08-30] MEDS ORDERED: CITRIC ACID-SODIUM CITRATE LIQ 30 ML UDC PO SCH (18:30)
[2017-08-30] MEDS ORDERED: OXYTOCIN 30 UNITS-500ML PREMIX 500 ML IV ONE (18:30)
[2017-08-30] MEDS ORDERED: oxyCODONE/ACETAMINOPHEN 5 MG/325 MG TAB PO PRN (18:30)
[2017-08-30] MEDS ORDERED: KETOROLAC TROMETHAMINE 60 MG/2 ML (IM) VIAL IM PRN (18:30)
[2017-08-30] MEDS ORDERED: OXYTOCIN 30 UNITS-500ML PREMIX 500 ML ONE (19:12)
[2017-08-30] MEDS ORDERED: SODIUM CHLORIDE 0.9% FLUSH 5 ML FLUSH IV FLUSH SCH (21:00)
[2017-08-30] MEDS: SODIUM CHLORIDE 0.9% FLUSH 10 ML FLUSH IV FLUSH SCH (21:00)
[2017-08-31] VITALS (41 sets, daily range): BP systolic 118–141; BP diastolic 47–79; PULSE 90–109; RESP 18; TEMP 98.3–98.4; O2SAT 92–100
[2017-08-31] MEDS: LACTATED RINGER'S 1000 ML INJ 1,000 ML IV SCH ×5 (00:40→14:00)
[2017-08-31] MEDS: ACETAMINOPHEN 325 MG TAB PO SCH ×5 (04:00→16:00)
[2017-08-31] MEDS ORDERED: OXYTOCIN 30 UNITS-500ML PREMIX 500 ML IV PRN (04:30)
[2017-08-31 04:39] LABS: AUTOMATED NEUTROPHIL # 10.4 TH/MM3 (1.8-7.7); BASOPHIL % 0.1 % (0.0-2.0); HEMATOCRIT 26.8 % (35.0-46.0); HEMO FLAGS DIFF FINAL; LYMPH % 9.2 % (9.0-44.0); LYMPHOCYTE # 1.1 TH/MM3 (1.0-4.8); MEAN CELL VOLUME 71.4 FL (80.0-100.0); MEAN CORPUSCULAR HEMOGLOBIN 22.8 PG (27.0-34.0); MEAN CORPUSCULAR HGB CONC 31.9 % (32.0-36.0); NEUT % 85.7 % (16.0-70.0); PLATELET COUNT 282 TH/MM3 (150-450); RED BLOOD COUNT 3.75 MIL/MM3 (4.00-5.30); RED CELL DISTRIBUTION WIDTH 18.2 % (11.6-17.2); WHITE BLOOD COUNT 12.1 TH/MM3 (4.0-11.0)
--- NOTE | 2017-08-31 06:19 | MP ---
cc: CRISSY AVILES M.D. DATE OF SURGERY 08/30/2017 PROCEDURE PERFORMED Repeat low transverse section. PREOPERATIVE DIAGNOSES 1. Desires repeat section. 2. Preeclampsia. 3. 35 weeks and 6 days. POSTOPERATIVE DIAGNOSES 1. Desires repeat section. 2. Preeclampsia. 3. 35 weeks and [address] Crissy Aviles ESTIMATED BLOOD LOSS 500 cc COMPLICATIONS None. FINDINGS Significant scar tissue live male , Apgars 4, 7, and 8 and the baby was 8 pounds, 2 ounces. PROCEDURE IN DETAIL After informed consent the patient was taken to the operating room where she was placed under spinal anesthesia, placed in supine position with a left lateral tilt. The abdomen, perineum and vagina were prepped and draped in normal sterile fashion. After adequate anesthesia was assured and a time-out was taken, a Pfannenstiel skin incision was carried sharply in the old scar to the fascia. The fascia was nicked in midline. Incision was extended laterally using Palumbo scissors. The rectus muscle was dissected off the fascia with sharp dissection secondary to scar tissue. Once we had rectus muscle dissected and the peritoneum was entered, we extend the incision using sharp dissection secondary to car tissue. The uterus was noted to be adherent to the anterior abdominal wall. It cleared enough area for the uterine incision. A low-transverse uterine incision was then made, carried sharply into the uterine cavity. Clear fluid was noted. The incision was extended laterally using blunt traction. A hand was placed into the uterus. The infant's head was guided through the incision using fundal pressure. The infant's head did not deliver because it would not elevate. A vacuum was applied to the occiput portion of the 's head was slight elevation was used for less than 10 seconds and with fundal pressure the infant's head was delivered. The nose and mouth were suctioned well. The was delivered the remaining portion of the way. The was crying and moving well on the abdomen, so we waited 45 seconds. We clamped the cord and handed the baby to Pediatrics. Once the was handed to Pediatrics, Apgars were 4, 7 and 8 at 1, 5 and 10 minutes. Cord blood was collected. The placenta was delivered manually. The uterus was exteriorized, wiped free from all remaining products of conception. The uterine incision was exteriorized after adhesions were taken down. There were some adhesions which were adherent to the anterior abdominal wall. These had to be freed before the uterus could be exteriorized. We delivered the uterus. The uterus was wiped free from all products of conception, closed with a running locking stitch of chromic suture. Good hemostasis was achieved. The uterus was placed back in the abdomen, noted to be hemostatic. The adnexa were normal and the adhesions that had been had been taken down were dry. The peritoneum was closed with chromic suture. The fascia was closed with Vicryl suture. The subcutaneous tissue was closed with Vicryl suture and the skin was closed in subcuticular stitch. Each layer was noted be hemostatic prior to closure and the patient tolerated the procedure well. MD ZHEN Hernandez/OSMAR /6:16 PM /5:57 AM
--- NOTE | 2017-08-31 08:08 | HHI.OB ---
Subjective Post Day: 1 Remarks Patient feels better since delivery, making good urine and tolerating magnesium Objective Vitals/I&O Vital Signs Date Time Temp Pulse Resp B/P (MAP) Pulse Ox O2 Delivery O2 Flow Rate FiO2 08/31/17 00:00 109 118/47 (70) 08/30/17 23:00 108 18 135/57 (83) 08/30/17 22:00 97.5 08/30/17 22:00 109 130/66 (87) 08/30/17 21:31 18 08/30/17 21:01 110 158/73 (101) 08/30/17 20:55 108 153/72 (99) 08/30/17 12:55 123 100 08/30/17 12:50 125 99 08/30/17 12:45 123 99 08/30/17 12:40 127 99 08/30/17 12:30 98.1 122 96 08/30/17 12:25 123 96 08/30/17 12:20 123 96 08/30/17 12:15 125 96 08/30/17 12:10 124 96 08/30/17 12:05 120 96 08/30/17 12:00 122 96 08/30/17 11:20 116 97 08/30/17 11:15 119 98 08/30/17 11:10 115 98 08/30/17 11:05 125 98 08/30/17 11:00 28 08/30/17 11:00 119 97 08/30/17 10:55 117 97 08/30/17 10:50 122 97 08/30/17 10:45 118 96 08/30/17 10:40 117 98 08/30/17 10:35 118 97 08/30/17 10:00 116 145/74 (97) Intake & Output 08/31/17 08/31/17 07:00 19:00 Intake Total 2500 ml Balance 2500 ml Intake IV Total 2500 ml Objective Remarks GENERAL: Well-nourished, well-developed patient. . ABDOMEN/GI: Abdomen soft, non-tender. Fundus: Firm, non-tender at umbilicus. GENITOURINARY: Light to moderate bleeding. EXTREMITIES: No cyanosis or edema, non-tender, without signs of DVT. Medications and IVs Current Medications Medications (Trade) Dose Ordered Sig/Arnaldo Route Start Time Stop Time Status Last Admin (Zofran Inj) 4 mg Q6H PRN IV PUSH 08/29/17 20:30 Lactated Ringer's 1,000 ml @ 75 mls/hr [id number] IV 08/29/17 22:30 08/31/17 01:10 (NS Flush) 2 ml UNSCH PRN IV FLUSH 08/29/17 22:30 (NS Flush) 2 ml BID IV FLUSH 08/30/17 09:00 (Calcium Gluconate Inj) 1 gm UNSCH PRN IV PUSH 08/29/17 22:30 Magnesium Sulfate 1,000 ml @ 50 mls/hr Q20H IV 08/30/17 12:59 (Tylenol) 650 mg Q4H PO 08/30/17 16:00 Lactated Ringer's 1,000 ml @ 150 mls/hr Q6H40M IV 08/30/17 18:00 Cefazolin Sodium/ Dextrose 50 ml @ 100 mls/hr NUTRITION CONSULTANT IV 08/30/17 18:00 09/03/17 17:59 (Bicitra Liq) 30 ml NUTRITION CONSULTANT PO 08/30/17 18:30 09/03/17 18:29 Lactated Ringer's 1,000 ml @ 100 mls/hr Q10H IV 08/30/17 23:19 08/31/17 19:18 Oxytocin 500 ml @ 100 mls/hr UNSCH X1 PRN IV 08/31/17 04:30 09/01/17 04:29 (NS Flush) 2 ml BID IV FLUSH 08/30/17 21:00 (NS Flush) 2 ml UNSCH PRN IV FLUSH 08/30/17 18:30 (Mylicon Chew) 80 mg QID PRN PO 08/30/17 18:30 (Motrin) 600 mg Q6H PRN PO 08/30/17 18:30 (Toradol Inj) 30 mg Q6H PRN IM 08/30/17 18:30 08/31/17 18:29 (Percocet 5-325 Mg) 1 tab Q4H PRN PO 08/30/17 18:30 (Percocet 5-325 Mg) 2 tab Q4H PRN PO 08/30/17 18:30 (M-M-R Ii Inj) 0.5 ml ONCE ONCE SQ 08/31/17 16:00 08/31/17 16:01 (Boostrix Inj) 0.5 ml ONCE ONCE IM 08/31/17 16:00 08/31/17 16:01 Assessment/Plan Problem List: (1) Hypertension complicating ICD Codes: O16.9 - Unspecified maternal hypertension, unspecified trimester (2) 35 weeks gestation of ICD Codes: Z3A.35 - 35 weeks gestation of Assessment and Plan preeclampsia doing well Plan --admission check lab, normal Sulaiman Aviles MD Aug 31, 2017 08:08
[2017-08-31] MEDS: SODIUM CHLORIDE 0.9% FLUSH 5 ML FLUSH IV FLUSH SCH (08:44)
[2017-08-31] MEDS: SODIUM CHLORIDE 0.9% FLUSH 10 ML FLUSH IV FLUSH SCH (08:44)
[2017-08-31] MEDS ORDERED: MEASLES, MUMPS, RUBELLA VACCINE 0.5 ML VIAL SQ ONE (16:00)
[2017-08-31] MEDS ORDERED: DIPHTH/TETANUS/ACEL PERTUSSIS (BOOSTER) 0.5 ML VIAL/PFS IM ONE (16:00)
[2017-08-31] MEDS ORDERED: MORPHINE SULFATE PF 5 MG/10 ML VIAL IT ONE (17:28)
[2017-08-31] MEDS: IBUPROFEN 600 MG TAB PO PRN (19:16)
[2017-08-31] MEDS ORDERED: EPIDURAL-DIPHENHYDRAMINE HCL 50 MG CAP PO PRN (22:30)
[2017-08-31] MEDS ORDERED: EPIDURAL-NO SYSTEMIC NARCOTICS PRN (22:30)
[2017-08-31] MEDS ORDERED: EPIDURAL-DIPHENHYDRAMINE HCL 50 MG/ML VIAL IV PUSH PRN (22:30)
[2017-08-31] MEDS ORDERED: EPIDURAL-DO NOT ADMINISTER ANTICOAGULANTS PRN (22:30)
[2017-08-31] MEDS ORDERED: EPIDURAL-NALOXONE HCL 0.4 MG/ML AMP IV PUSH PRN (22:30)
[2017-08-31] MEDS: SIMETHICONE 80 MG CHEWABLE TAB PO PRN (23:11)
[2017-09-01] MEDS: IBUPROFEN 600 MG TAB PO PRN ×3 (01:41→19:30)
[2017-09-01] MEDS ORDERED: ACETAMINOPHEN 1000 MG/100 ML VIAL IV SCH (02:00)
--- NOTE | 2017-09-01 07:58 | HHI.OB ---
Subjective Post Day: 2 Remarks doing well Objective Vitals/I&O Vital Signs Date Time Temp Pulse Resp B/P (MAP) Pulse Ox O2 Delivery O2 Flow Rate FiO2 08/31/17 23:40 98.3 08/31/17 19:16 98.4 18 08/31/17 19:11 107 141/79 (99) 08/31/17 15:00 99 133/74 (93) 08/31/17 13:20 90 95 08/31/17 13:15 91 94 08/31/17 13:10 91 94 08/31/17 13:05 93 96 08/31/17 13:01 96 135/67 (89) 08/31/17 13:00 97 96 08/31/17 12:55 93 08/31/17 12:55 96 08/31/17 12:50 98 08/31/17 12:50 94 08/31/17 12:45 95 08/31/17 12:35 92 08/31/17 12:35 92 08/31/17 12:30 90 95 08/31/17 12:25 92 97 08/31/17 12:20 103 98 08/31/17 12:15 95 94 08/31/17 12:10 95 96 08/31/17 11:55 99 08/31/17 11:55 96 08/31/17 11:50 95 08/31/17 11:50 100 08/31/17 11:45 99 96 08/31/17 11:40 96 96 08/31/17 11:35 98 95 08/31/17 11:30 98 98 08/31/17 11:25 95 96 08/31/17 11:20 95 96 08/31/17 11:15 94 97 08/31/17 11:11 18 08/31/17 11:10 95 99 08/31/17 11:05 95 100 08/31/17 11:01 97 139/77 (97) 08/31/17 10:55 93 99 08/31/17 10:50 93 99 08/31/17 10:45 93 98 08/31/17 10:40 91 99 08/31/17 10:35 97 96 08/31/17 10:30 93 94 08/31/17 10:25 93 97 08/31/17 10:20 90 94 08/31/17 10:15 91 100 Objective Remarks GENERAL: Well-nourished, well-developed patient. . ABDOMEN/GI: Abdomen soft, non-tender. Fundus: Firm, non-tender at umbilicus. GENITOURINARY: Light to moderate bleeding. EXTREMITIES: No cyanosis or edema, non-tender, without signs of DVT. Medications and IVs Current Medications Medications (Trade) Dose Ordered Sig/Ranaldo Route Start Time Stop Time Status Last Admin (Zofran Inj) 4 mg Q6H PRN IV PUSH 08/29/17 20:30 Lactated Ringer's 1,000 ml @ 75 mls/hr [id number] IV 08/29/17 22:30 08/31/17 01:10 (NS Flush) 2 ml UNSCH PRN IV FLUSH 08/29/17 22:30 (NS Flush) 2 ml BID IV FLUSH 08/30/17 09:00 (Tylenol) 650 mg Q4H PO 08/30/17 16:00 Lactated Ringer's 1,000 ml @ 150 mls/hr Q6H40M IV 08/30/17 18:00 (NS Flush) 2 ml BID IV FLUSH 08/30/17 21:00 (NS Flush) 2 ml UNSCH PRN IV FLUSH 08/30/17 18:30 08/31/17 17:48 (Mylicon Chew) 80 mg QID PRN PO 08/30/17 18:30 08/31/17 23:11 (Motrin) 600 mg Q6H PRN PO 08/30/17 18:30 09/01/17 01:41 (Percocet 5-325 Mg) 1 tab Q4H PRN PO 08/30/17 18:30 (Percocet 5-325 Mg) 2 tab Q4H PRN PO 08/30/17 18:30 Miscellaneous Information NO SYSTEMIC NARCOTICS TO BE GIVEN FO... UNSCH PRN .XX 08/31/17 22:30 09/01/17 22:29 (Narcan Inj) 0.4 mg UNSCH PRN IV PUSH 08/31/17 22:30 09/01/17 22:29 (Benadryl Inj) 25 mg Q6H PRN IV PUSH 08/31/17 22:30 09/01/17 22:29 Miscellaneous Information ALL NURSING DEPARTMENTS UNSCH PRN .XX 08/31/17 22:30 09/01/17 22:29 Assessment/Plan Problem List: (1) Hypertension complicating ICD Codes: O16.9 - Unspecified maternal hypertension, unspecified trimester (2) 35 weeks gestation of ICD Codes: Z3A.35 - 35 weeks gestation of Assessment and Plan preeclampsia doing well Plan --admission check lab, normal Sulaiman Aviles MD Sep 01, 2017 07:58
[2017-09-01 08:16] VITALS: BP 148/88; PULSE 94; RESP 18; TEMP 98.2
[2017-09-01] MEDS ORDERED: DOCUSATE SODIUM 100 MG CAP PO SCH (09:00)
[2017-09-01] MEDS: oxyCODONE/ACETAMINOPHEN 5 MG/325 MG TAB PO PRN ×2 (12:41→19:30)
[2017-09-01 14:40] VITALS: BP 134/76; PULSE 111
[2017-09-01] MEDS: SIMETHICONE 80 MG CHEWABLE TAB PO PRN (19:30)
[2017-09-02] MEDS: SIMETHICONE 80 MG CHEWABLE TAB PO PRN ×2 (01:25→06:38)
[2017-09-02] MEDS: oxyCODONE/ACETAMINOPHEN 5 MG/325 MG TAB PO PRN ×4 (01:25→16:05)
[2017-09-02] MEDS: IBUPROFEN 600 MG TAB PO PRN ×2 (01:25→11:14)
[2017-09-02] MEDS: LACTATED RINGER'S 1000 ML INJ 1,000 ML IV SCH ×2 (06:30→09:07)
[2017-09-02] MEDS: ACETAMINOPHEN 325 MG TAB PO SCH ×3 (08:00→16:00)
[2017-09-02 08:06] VITALS: BP 142/86; PULSE 98; RESP 20; TEMP 98.7
[2017-09-02] MEDS: SODIUM CHLORIDE 0.9% FLUSH 10 ML FLUSH IV FLUSH SCH (09:00)
[2017-09-02] MEDS: SODIUM CHLORIDE 0.9% FLUSH 5 ML FLUSH IV FLUSH SCH (09:00)
[2017-09-02] MEDS ORDERED: IBUP-232 PO (13:39)
[2017-09-02] MEDS ORDERED: OXYC1TAB63 PO (13:39)
--- NOTE | 2017-09-02 13:40 | HHI.DCPOC ---
Discharge Care Plan Diagnosis: (1) delivery, delivered, current hospitalization Report Symptoms to Your Doctor -Temperature above 100.5 degrees -Redness, of incision or excessive or foul smelling drainage -Unusual pain or calf pain -Increased vaginal bleeding -Painful or difficulty urinating -Feelings of extreme sadness or anxiety after 2 weeks Goals to Promote Your Health * To prevent worsening of your condition and complications * To maintain your health at the optimal level Directions to Meet Your Goals Take your medications as prescribed Follow your dietary instruction Follow activity as directed Ensure plenty of rest for recovery Drink fluids for hydration Keep your appointments as scheduled Take your immunizations and boosters as scheduled If your symptoms worsen call your PCP, if no PCP go to Urgent Care Center or Emergency Room Smoking is Dangerous to Your Health. Avoid second hand smoke Call the 24-hour crisis hotline for domestic abuse at Paco Ruiz MD Sep 02, 2017 13:40
[2017-09-03] MEDS ORDERED: INFLUENZA VIRUS VACCINE (QUADRIVALENT) 0.5 ML SYR IM ONE (10:00)
== END 2017-09-02 17:49 | disposition home or self-care (01) | DRG 766 ==
LOC: HOBED 18:36 → H2EA 20:28 → H1EA 08-31 19:25
PROVIDERS: ADMIT Obstetrics & Gynecology; ATTEND Obstetrics & Gynecology
PROC: 10D00Z1 Extraction of Products of Conception, Low, Open Approach (ICD-10-PCS; principal; 2017-08-30)
DX: O14.94 Unspecified pre-eclampsia, complicating childbirth (principal); O34.211 Maternal care for low transverse scar from previous cesarean delivery; Z37.0 Single live birth; Z3A.35 35 weeks gestation of pregnancy; Z23 Encounter for immunization
CPT/HCPCS: 59025; 80053; 81001; 84550; 85025; 85027; 86850; 86900; 86901; 90686; 90715; 96360; J0131; J0171; J0690; J0702; J1100; J1885; J2274; J2405; J2590; J3475; J7120; Q2038

== ENCOUNTER 2017-12-28 14:01 | Emergency (ER) | payer SELFPAY ==
[~2017-12-28] VITALS: Ht 165.1 cm; Wt 109.0 kg
[~2017-12-28 14:01] MED LIST changes: +B12 PO; +IBUP-232 PO; +Iron PO; +OXYC1TAB63 PO; +Prenatal Vitamin PO; -ZOFR4TAB3 SL
[2017-12-28 14:04] VITALS: BP 150/75; PULSE 95; RESP 16; TEMP 98.2; O2SAT 96
[2017-12-28] MEDS ORDERED: PROPARACAINE HCL 0.5% OPHT SOLN 15 ML BTL LEFT EYE ONE (14:30)
--- NOTE | 2017-12-28 14:30 | PD ---
HPI Chief Complaint: Eye Problems/Injury Time Seen by Provider: 14:23 Travel History International Travel<30 days: No Contact w/Intl Traveler<30days: No Traveled to known affect area: No History of Present Illness HPI 37-year-old female presents to the emergency Department with complaint of left eye redness, swelling, drainage, and blurred vision 4 days. Reports itching and burning sensation. Denies pain. Reports pressure. Denies eye trauma or known foreign body. Reports clear drainage. Denies waking up in the mornings with her eye crusted shut. Denies fever, vomiting. Ago at work had a swollen right eye that she noticed that was told that it was allergies. Has tried over- the-counter homeopathic pinkeye drops for symptom management. Symptoms are mild in severity. No known relieving or aggravating factors. No known allergies. Dr. Kang primary care provider. Denies significant past medical history. Has no other medical complaints. No black or associated signs and symptoms. PFSH Past Medical History AAA: No ADD: No ADHD: No Alzheimer's Disease: No Anemia: No Arthritis: No Asthma: No Atrial Fibrillation: No Autoimmune Disease: No Blood Disorders: No Bipolar Disorder: No Anxiety: No Depression: No Heart Rhythm Problems: No Cancer: No Cardiomyopathy: No Cardiovascular Problems: No Cerebral Palsy: No High Cholesterol: No Chemotherapy: No Chest Pain: No Congestive Heart Failure: No Cirrhosis: No COPD: No Cerebrovascular Accident: No Coronary Artery Disease: No Cystic Fibrosis: No Dementia: No Developmental Delay: No Diabetes: No Dialysis: No Diminished Hearing: No Diverticulitis: No Endocrine: No Gastrointestinal Disorders: No Genetic Disorder: No GERD: No Genitourinary: No Headaches: No Hepatitis: No Hypertension: No Immune Disorder: No Kidney Stones: No Musculoskeletal: No Neurologic: No Psychiatric: No Reproductive: Yes (PRE-ECLAMPSIA) Respiratory: No Integumentary: No Migraines: No Myocardial Infarction: No Pancreatitis: No Radiation Therapy: No Renal Failure: No Schizophrenia: No Seizures: No Sickle Cell Disease: No Thyroid Disease: No Ulcer: No ?: Not : 3 Para: 2 Miscarriage: 1 Past Surgical History Abdominal Surgery: Yes (1996) AICD: No Arteriovenous Shunt: No Cardiac Surgery: No Section: Yes (2002, 2006) Ear Surgery: No Endocrine Surgery: No Eye Surgery: No Genitourinary Surgery: No Gynecologic Surgery: No Insulin Pump: No Neurologic Surgery: No Oral Surgery: No Pacemaker: No Thoracic Surgery: No Other Surgery: Yes (UMBILICAL HERNIA REPAIR 1994) Family History Family Hypercholesterolemia: No Social History Alcohol Use: No Tobacco Use: No Substance Use: No Allergies-Medications (Allergen,Severity, Reaction): Coded Allergies: No Known Allergies (Verified Adverse Reaction, Unknown, 12/28/17) Reported Meds & Prescriptions Reported Meds & Active Scripts Active Erythromycin Opth Oint 5 Mg/Gm Oint 1 Applic LEFT EYE QID 7 Days Oxycodone-Acetaminophen 5-325 mg Tab 1 Tab PO Q4H PRN 5 Days Ibuprofen 600 Mg Tab 600 Mg PO Q6H PRN 14 Days Reported [B12] 1 Tab PO DAILY [Iron] 1 Tab PO DAILY [ Vitamin] 1 Tab PO DAILY Review of Systems Except as stated in HPI: all other systems reviewed are Neg Physical Exam Narrative GENERAL: Well-nourished, well-developed black female patient, in no acute distress SKIN: Warm and dry. HEAD: Atraumatic. Normocephalic. EYES: Pupils equal and round at 3 mm with brisk reaction. PERRLA. EOMI. visual acuity with glasses; left eye 20/200; right eye 20/15; both eyes 20/20. Left lid eversion with no foreign body noted. Left eye with scleral erythema and without lid edema. No orbital tenderness, erythema or cellulitis. Left eye without photophobia. No consensual photophobia. No scleral icterus. Clear drainage. Hernández lamp exam unremarkable. Tonometry reading right eye 14; left eye 13. ENT: Mucosa pink and moist. Airway patent. NECK: Trachea midline. CARDIOVASCULAR: Regular rate. RESPIRATORY: No accessory muscle use. GASTROINTESTINAL: Rounded. NEUROLOGICAL: Awake and alert. Oriented 3. No obvious cranial nerve deficits. Motor grossly within normal limits. Normal speech. PSYCHIATRIC: Appropriate mood and affect; insight and judgment normal. Data Data Last Documented VS Vital Signs Date Time Temp Pulse Resp B/P (MAP) Pulse Ox O2 Delivery O2 Flow Rate FiO2 12/28/17 14:04 98.2 95 16 150/75 (100) 96 Orders Orders Proparacaine 0.5% Opth Soln (Alcaine 0.5 (12/28/17 14:30) Ed Discharge Order (12/28/17 15:16) MDM Medical Decision Making Medical Screen Exam Complete: Yes Emergency Medical Condition: Yes Medical Record Reviewed: Yes Differential Diagnosis Conjunctivitis, corneal abrasion, corneal ulceration, foreign body Narrative Course 37-year-old female with left eye redness and swelling. Denies injury or foreign body. Hernández lamp exam unremarkable; sclera of the eye appears edematous. Tonometry reading of the left eye is 13 and right eye 14. Visual acuity of left eye is 20/[address] Webb evaluated the patient also. Patient instructed to follow-up with ophthalmology within 1-2 days. Erythromycin ointment prescribed for home. Patient verbalized understanding and agreement of needing to follow-up with nurse's assistant. Says she will contact her primary care provider for referral to ophthalmology today. Instructed patient to follow up with primary care provider. Patient verbalizes understanding and agreement with treatment plan. Patient is medically cleared and stable for discharge. Discussed reasons to return to the emergency department. Patient agrees with treatment plan. The patients vital signs are stable and the patient is stable for outpatient follow-up and treatment. Patient discharged home, stable and in no acute distress. Diagnosis Primary Impression: Redness of left eye Additional Impressions: Irritation of left eye Blurred vision, left eye Referrals: Transportation Officer Primary Care Physician Patient Instructions: Conjunctivitis (ED), General Instructions, Glaucoma (ED) Additional Instructions: Ibuprofen or Tylenol as directed and as needed to reduce pain Do not patch the eye Do not rub the eye Refrigerated eye drops as needed to reduce pain Cool compresses to the eye as needed to reduce pain Follow-up with ophthalmology 1-2 days Follow up with Primary care provider Return to the emergency department immediately with worsening of symptoms Med/Other Pt SpecificInfo: Prescription(s) given Scripts Erythromycin Opth Oint (Erythromycin Opth Oint) 5 Mg/Gm Oint 1 APPLIC LEFT EYE QID for Infection for 7 Days, #1 TUBE 0 Refills Prov: Lori Topete 12/28/17 Disposition: 01 DISCHARGE HOME Condition: Stable Lori Topete Dec 28, 2017 14:30
--- NOTE | 2017-12-28 15:07 | PD ---
Physical Exam Date Seen by Provider: Dec 28, 2017 Narrative This patient presents with redness and irritation of her left eye last few days. There has been some associated tearing but no purulent drainage. Data Data Last Documented VS Vital Signs Date Time Temp Pulse Resp B/P (MAP) Pulse Ox O2 Delivery O2 Flow Rate FiO2 12/28/17 14:04 98.2 95 16 150/75 (100) 96 Orders Orders Proparacaine 0.5% Opth Soln (Alcaine 0.5 (12/28/17 14:30) MDM Supervised Visit with SANDRA: Yes Narrative Course I, Dr. Webb, have reviewed the advance practice practitioner's documentation and am in agreement, met with the patient face to face, made the diagnosis, and the medical decision making was done by me. *My assessment and Findings: Her left eye is injected. The cornea looks cloudy. Floor seen staining was uptake around the periphery of the cornea. Lori will check her intraocular pressure. This patient may need emergent referral to an systems admin. Regardless of the pressure, she does need urgent referral to an systems admin. Please see Lori Topete NP's note for results of laboratory and radiographic evaluation, ED course, final diagnosis and disposition Referrals: Desk Pens Assembler Primary Care Physician Olinda Webb MD Dec 28, 2017 15:07
[2017-12-28] MEDS ORDERED: ERYTOIN10 LEFT EYE (15:15)
== END 2017-12-28 15:26 | disposition home or self-care (01) ==
LOC: PHEFT 14:01
DX: H57.8 Other specified disorders of eye and adnexa (principal); H53.8 Other visual disturbances
CPT/HCPCS: 99283

== ENCOUNTER 2017-12-30 10:05 | Emergency (ER) | payer SELFPAY ==
[~2017-12-30] VITALS: Ht 165.1 cm; Wt 104.5 kg
[~2017-12-30 10:05] MED LIST changes: +ERYTOIN10 LEFT EYE
[2017-12-30 10:08] VITALS: BP 139/83; PULSE 82; RESP 15; TEMP 98.3; O2SAT 98
[2017-12-30] MEDS ORDERED: SERT-132 PO (10:21)
[2017-12-30] MEDS ORDERED: PROPARACAINE HCL 0.5% OPHT SOLN 15 ML BTL LEFT EYE ONE (10:45)
--- NOTE | 2017-12-30 11:13 | PD ---
HPI Chief Complaint: Eye Problems/Injury Time Seen by Provider: 10:37 Travel History International Travel<30 days: No Contact w/Intl Traveler<30days: No Traveled to known affect area: No History of Present Illness HPI The patient is a 37-year-old [place] female who presents emergency department for left eye pain, headache, vision loss. The patient states her symptoms started last Sunday with mild left eye pain and redness. Her symptoms progressed on and she was subsequently seen in another emergency department on Sunday. The patient apparently had normal pressures performed at that time, was placed on erythromycin ointment and advised to follow-up with an acds block 1 operator. However, it was Sunday and she was unable to follow-up with an acds block 1 operator. She now notes progressing symptoms with retro-periorbital left-sided headache, left eye redness, and decreased vision out of the left eye. The patient is only able to see light out of the left eye currently. She does were glasses, denies any known history of glaucoma. Symptoms are moderate and progressing. There are no current alleviating factors. PFSH Past Medical History Hx Anticoagulant Therapy: No AAA: No ADD: No ADHD: No Alzheimer's Disease: No Anemia: No Arthritis: No Asthma: No Atrial Fibrillation: No Autoimmune Disease: No Blood Disorders: No Bipolar Disorder: No Anxiety: Yes Depression: No Heart Rhythm Problems: No Cancer: No Cardiomyopathy: No Cardiovascular Problems: No Cerebral Palsy: No High Cholesterol: No Chemotherapy: No Chest Pain: No Congestive Heart Failure: No Cirrhosis: No COPD: No Cerebrovascular Accident: No Coronary Artery Disease: No Cystic Fibrosis: No Dementia: No Developmental Delay: No Diabetes: No Dialysis: No Diminished Hearing: No Diverticulitis: No Endocrine: No Gastrointestinal Disorders: No Genetic Disorder: No GERD: No Genitourinary: No Headaches: No Hepatitis: No Hypertension: No Immune Disorder: No Kidney Stones: No Musculoskeletal: No Neurologic: No Psychiatric: Yes Reproductive: Yes (PRE-ECLAMPSIA) Respiratory: No Integumentary: No Migraines: No Myocardial Infarction: No Pancreatitis: No Radiation Therapy: No Renal Failure: No Schizophrenia: No Seizures: No Sickle Cell Disease: No Thyroid Disease: No Ulcer: No Tetanus Vaccination: < 5 Years Influenza Vaccination: Yes ?: Not LMP: I have IUD : 3 Para: 2 Miscarriage: 1 Past Surgical History Abdominal Surgery: Yes (HERNIA - 1996) AICD: No Arteriovenous Shunt: No Cardiac Surgery: No Section: Yes (2002, 2006) Ear Surgery: No Endocrine Surgery: No Eye Surgery: No Genitourinary Surgery: No Gynecologic Surgery: No Hysterectomy: No Insulin Pump: No Neurologic Surgery: No Oral Surgery: No Pacemaker: No Thoracic Surgery: No Other Surgery: Yes (UMBILICAL HERNIA REPAIR 1993) Family History Family Hypercholesterolemia: No Social History Alcohol Use: Yes (rarely) Tobacco Use: No Substance Use: No Allergies-Medications (Allergen,Severity, Reaction): Coded Allergies: No Known Allergies (Verified Adverse Reaction, Unknown, 12/30/17) Reported Meds & Prescriptions Reported Meds & Active Scripts Active Erythromycin Opth Oint 5 Mg/Gm Oint 1 Applic LEFT EYE QID 7 Days Reported Sertraline (Sertraline HCl) 50 Mg Tab 50 Mg PO DAILY Review of Systems Except as stated in HPI: all other systems reviewed are Neg General / Constitutional: No: Fever Eyes: Positive: Blurred Vision, Redness, Pain, Tearing, Visual changes, Blindness, No: Photophobia, Drainage HENT: Positive: Headaches, No: Neck Pain Neurologic: Positive: Headache Physical Exam Narrative GENERAL: Awake, alert, pleasant 37 year-old female who appears her stated age is in no acute respiratory distress. SKIN: Focused skin assessment warm/dry. HEAD: Atraumatic. Normocephalic. EYES: Right pupil is 4 mm and reactive. Left pupil is 3-4 mm, fixed, with hazy cornea. Conjunctival injection noted. EOMs are intact. Vision of the right eye with glasses is 20/10, of the left she is only able to see light. One drop of proparacaine was applied to the left and right eye. Pressure in the left eye was 88 on 2 different occasions, the right eye was 22 and 24 respectively. Fluroscein staining was applied, slit-lamp examination was performed. The left cornea is hazy with a nonreactive pupil. No visible ulceration. No dendritic lesions noted. Mild proptosis of the left eye noted. ENT: No nasal bleeding or discharge. Mucous membranes pink and moist. NECK: Trachea midline. No JVD. CARDIOVASCULAR: Regular rate and rhythm. No murmur appreciated. RESPIRATORY: No accessory muscle use. Clear to auscultation. Breath sounds equal bilaterally. GASTROINTESTINAL: Abdomen soft, non-tender, nondistended. Hepatic and splenic margins not palpable. MUSCULOSKELETAL: No obvious deformities. No clubbing. No cyanosis. No edema. NEUROLOGICAL: Awake and alert. No obvious cranial nerve deficits. Motor grossly within normal limits. Normal speech. PSYCHIATRIC: Appropriate mood and affect; insight and judgment normal. Data Data Last Documented VS Vital Signs Date Time Temp Pulse Resp B/P (MAP) Pulse Ox O2 Delivery O2 Flow Rate FiO2 12/30/17 10:22 16 12/30/17 10:08 98.3 82 139/83 (101) 98 Orders Orders Proparacaine 0.5% Opth Soln (Alcaine 0.5 (12/30/17 10:45) Brimonidine 0.2% Opth Soln (Alphagan 0.2 (12/30/17 11:15) Timolol 0.5% Opth Soln (Timoptic 0.5% Op (12/30/17 11:15) Latanoprost 0.005% Opth Soln (Xalatan 0. (12/30/17 11:15) Acetazolamide Inj (Diamox Inj) (12/30/17 11:15) [facility] Medical Decision Making Medical Screen Exam Complete: Yes Emergency Medical Condition: Yes Medical Record Reviewed: Yes Differential Diagnosis Differential diagnosis includes iritis, uveitis, glaucoma, episcleritis, hyphema , corneal ulcer. Narrative Course The patient's examination left eye reveals a left mid dilated pupil with cornea which appears hazy and a pressure of 88. The patient appears to have acute angle closure glaucoma, was administered Diamox 1 g IV, timolol 0.5% to the left eye, latanoprost 0.005% one drop left eye , and brimonidine 0.15% left eye. A call was placed to the transfer center at [facility] to discuss with the on- call acds block 1 operator. I discussed the patient with Dr. Grey who agrees with ED to ED transfer. The patient's will drive her to [facility]. She will be discharged with the eyedrops and is advised to use the eyedrops every 10-15 minutes in the left eye. Report was called by nursing staff at [facility]. Diagnosis Primary Impression: Acute angle-closure glaucoma of left eye Additional Instructions: Use the 3 different eyedrops every 10-15 minutes in the left eye until seen by ophthalmology at [facility]. Drive directly to [facility] emergency department. Disposition: 70 TRANSFER TO OTHER FACILITY (ED to ED transfer) Condition: Stable Tru Riggs MD Dec 30, 2017 11:13
[2017-12-30] MEDS ORDERED: LATANOPROST 0.005% OPHT SOLN 2.5 ML BTL LEFT EYE ONE (11:15)
[2017-12-30] MEDS ORDERED: TIMOLOL MALEATE 0.5% OPHT SOLN 5 ML BTL LEFT EYE ONE (11:15)
[2017-12-30] MEDS ORDERED: BRIMONIDINE TARTRATE 0.2% OPHT SOLN 5 ML BTL LEFT EYE ONE (11:15)
[2017-12-30 12:05] VITALS: BP 130/81; TEMP 97.7
== END 2017-12-30 12:06 | disposition home or self-care (01) ==
LOC: NEPD 10:05
DX: H40.212 Acute angle-closure glaucoma, left eye (principal)
CPT/HCPCS: 99285; J1120